=== PATIENT | male | born 1980 | race Caucasian/White ===

== ENCOUNTER 2022-07-24 13:50 | Emergency (ER) | payer MEDICAID ==
[~2022-07-24] VITALS: Ht 182.9 cm; Wt 142.9 kg
[2022-07-24 13:56] VITALS: BP 139/99
--- NOTE | 2022-07-24 13:58 | NUR ---
PT AMBULATED TO ER BED 4
--- NOTE | 2022-07-24 14:18 | NUR ---
bibs for anxiety attack last night. hx anxiety and depression. ran out of meds. aao x4. resp even and nonlabored. tachy @ 112. denies si, hi, ah, vh. calm, cooperative, coherent. ambualtory
[2022-07-24] MEDS ORDERED: LORazepam 1 MG TAB PO ONE (14:20)
[2022-07-24] MEDS ORDERED: ALPRAZolam 0.5 MG TAB PO SCH (14:25)
[2022-07-24 15:12] VITALS: BP 127/74
[2022-07-24] MEDS ORDERED: ALPR2TAB1 PO ×3 (15:12→17:33)
== END 2022-07-24 15:17 | disposition home or self-care (01) ==
LOC: MED 13:50
DX: F41.9 Anxiety disorder, unspecified (principal); R03.0 Elevated blood-pressure reading, without diagnosis of hypertension; F32.A Depression, unspecified; Z79.899 Other long term (current) drug therapy
CPT/HCPCS: 99283